=== PATIENT | male | born 1955 | race Caucasian/White ===

== ENCOUNTER → 2020-06-17 | Outpatient (CLI) | payer MEDICARE ==
[2020-06-17 17:05] LABS: HEMOGLOBIN 17.4 gm/dl (14.0-17.5); RED BLOOD COUNT 5.15 M/UL (4.20-5.50); WHITE BLOOD COUNT 8.1 K/UL (4.5-11.0)
[2020-06-17 17:24] LABS: BUN/CREATININE RATIO 15 (0-10)
[2020-06-19 09:14] LABS: HBSAG SCREEN Negative (Negative); HEP A AB, IGM Negative (Negative); HEP B CORE AB, IGM Negative (Negative); HEP C VIRUS AB <0.1 (0.0-0.9)
[2020-06-19 10:14] LABS: ANTISTREPTOLYSIN O AB 223.3 IU/mL (0.0-200.0); RHEUMATOID ARTHRITIS FACTOR <10.0 IU/mL (0.0-13.9)
== END ==
LOC: LAB 16:31
PROVIDERS: Nurse Practitioner Family
DX: Z00.00 Encounter for general adult medical examination without abnormal findings (principal); M12.9 Arthropathy, unspecified; R53.83 Other fatigue; E78.5 Hyperlipidemia, unspecified; I10 Essential (primary) hypertension; Z51.81 Encounter for therapeutic drug level monitoring; M25.50 Pain in unspecified joint; Z79.899 Other long term (current) drug therapy
CPT/HCPCS: 80053; 80061; 80074; 82150; 83690; 84443; 84550; 85027; 85652; 86038; 86060; 86140; 86431

== ENCOUNTER → 2021-05-10 | Outpatient (CLI) | payer MEDICARE | LOC: KOH-I 11:36 | DX: M25.511 Pain in right shoulder (principal); M54.2 Cervicalgia; R05.9 Cough, unspecified; M54.6 Pain in thoracic spine; M54.50 Low back pain, unspecified | CPT/HCPCS: 71046; 72040; 72070; 72100; 73030 ==